=== PATIENT | female | born 2000 | race African-American/Black ===

== ENCOUNTER 2018-12-22 00:04 | Inpatient (IN) ==
[2018-12-22] MEDS ORDERED: OXYTOCIN/LR 20 UNIT/1,000 ML BAG IV PRN (00:22)
[2018-12-22] MEDS: LACTATED RINGERS 1,000 ML IV SCH ×3 (00:44→23:00)
[2018-12-22] MEDS: AMPICILLIN INJ 2,000 MG in SODIUM CHLORIDE 0.9% 100 ML IV SCH ×4 (01:04→20:30)
[2018-12-22 01:15] LABS: Basophils % 0.2 % (0.0-0.8); Eosinophils # 0.1 10*3/uL (0.0-0.87); Eosinophils % 0.5 % (0.00-10.9); Hematocrit 32.4 VOL% (35.7-47.0); Immature Granulocytes % 0.3 %; Immature Granulocytes Absolute 0.03 #; Lymphocytes % 20.4 % (21.3-54.2); Mean Corpuscular HGB Conc 30.9 GM/DL (32-36); Mean Corpuscular Hemoglobin 26 PG (27-34); Mean Corpuscular Volume 84.2 FL (87-102); Mean Platelet Volume 11.5 FL (9.6-12.0); Monocytes # 0.7 10*3/uL (0.11-0.8); Monocytes % 6.9 % (1.7-12.7); Neutrophils % 71.7 % (38.7-73.9); Platelet Count 292 T/CUMM (130-400); Red Blood Count 3.85 MC/CUMM (3.8-5.5); Red Cell Distribution Width 16.9 % (9.3-17.3); White Blood Count 9.8 T/CUMM (4-12)
[2018-12-22 01:18] LABS: Albumin 2.9 G/DL (3.4-5.0); Bilirubin,Total 0.6 MG/DL (0.2-1.0); Calcium 9.3 MG/DL (8.5-10.1); Osmolality,Calculated 273.7 MOS/KG (273-304); Total Protein 7.4 G/DL (6.4-8.3)
[2018-12-22] MEDS: BUTORPHANOL 2 MG/ML VIAL IV PRN ×4 (04:15→22:20)
[2018-12-22] MEDS: ONDANSETRON 4 MG/2 ML VIAL IV PRN ×3 (04:20→18:35)
[2018-12-22] MEDS ORDERED: ZALEPLON 5 MG CAPSULE PO ONE (22:13)
[2018-12-23] MEDS ORDERED: ceFAZolin 1,000 MG VIAL IV SCH
[2018-12-23] MEDS: ONDANSETRON 4 MG/2 ML VIAL IV PRN ×2 (00:51→07:11)
[2018-12-23] MEDS: MEPERIDINE 25 MG/1 ML VIAL IV PRN ×2 (00:53→05:49)
[2018-12-23] MEDS: AMPICILLIN INJ 2,000 MG in SODIUM CHLORIDE 0.9% 100 ML IV SCH ×3 (02:30→15:26)
[2018-12-23] MEDS: BUTORPHANOL 2 MG/ML VIAL IV PRN ×2 (04:22→07:10)
[2018-12-23] MEDS ORDERED: CITRIC ACID/SODIUM CITRATE 30 ML UDCUP PO ONE (07:18)
[2018-12-23] MEDS ORDERED: LACTATED RINGERS 1,000 ML IV ONE (07:18)
[2018-12-23] MEDS ORDERED: ePHEDrine 50 MG/ML AMP IV PRN (07:18)
[2018-12-23] MEDS ORDERED: FAMOTIDINE 20 MG/2 ML VIAL IV ONE (07:18)
[2018-12-23] MEDS ORDERED: diphenhydrAMINE 50 MG/1 ML VIAL IV PRN ×2 (07:19)
[2018-12-23] MEDS ORDERED: PROMETHAZINE 25 MG/1 ML VIAL IM ONE (07:19)
[2018-12-23] MEDS ORDERED: hydrOXYzine HCL 25 MG/1 ML VIAL IM PRN (07:19)
[2018-12-23] MEDS ORDERED: NALOXONE 0.4 MG/ML VIAL IV PRN (07:19)
[2018-12-23] MEDS ORDERED: LACTATED RINGERS 250 ML IV PRN (07:19)
[2018-12-23] MEDS ORDERED: LACTATED RINGERS 1,000 ML IV SCH ×2 (07:30)
[2018-12-23] MEDS: fentaNYL 2 MCG/ROPIV 0.2% EPID 100 ML EPIDURAL SCH ×2 (08:00→16:05)
[2018-12-23 10:17] LABS: Apearance,Urine Slightly Hazy (Clear); Bilirubin,Urine Negative (Negative); Blood, Urine Large mg/dL (Negative); Glucose,Urine (UA) Negative (Negative); Ketones,Urine 80 mg/dL (Negative); Mucus,Urine Occasional /LPF (Occasional); Nitrite,Urine Negative (Negative); Protein,Urine 30 MG/DL; RBC,Urine 419 /HPF (0-4); Squamous Epithelial Cell,Urine Occasional /HPF (0-10); Urine Color Yellow (Yellow); Urine Specific Gravity 1.021 (1.001-1.035); Urine Urobilinogen < 2.0 EU/DL (0.2-1.0); WBC,Urine 6 /HPF (0-6)
[2018-12-23] MEDS ORDERED: ceFAZolin 3,000 MG in SYRINGE 1 EACH IV ONE (16:29)
[2018-12-23] MEDS ORDERED: LIDOCAINE 2% 20 ML VIAL ONE (17:14)
[2018-12-23] MEDS ORDERED: RHO(D) IMMUNE GLOBULIN 300 MCG SYRINGE IM ONE (18:22)
[2018-12-23] MEDS ORDERED: OXYTOCIN/LR 20 UNIT/1,000 ML BAG IV ONE (18:22)
[2018-12-23] MEDS ORDERED: BISACODYL 10 MG SUPP RECTAL PRN (18:22)
[2018-12-23] MEDS ORDERED: WITCH HAZEL PADS 100/JAR TOP PRN (18:22)
[2018-12-23] MEDS ORDERED: BENZOCAINE 20%/MENTHOL 0.5% SPRAY 56 GM CAN TOP PRN (18:22)
[2018-12-23] MEDS ORDERED: DIPH/TET/ACEL PERT BOOSTER VACCINE 0.5 ML VIAL IM ONE (18:22)
[2018-12-23] MEDS ORDERED: HYDROCORTISONE 2.5% RECTAL CREAM 30 GM TUBE TOP PRN (18:22)
[2018-12-23] MEDS ORDERED: ONDANSETRON 4 MG/2 ML VIAL IV PRN (18:22)
[2018-12-23] MEDS ORDERED: LANOLIN 50% CREAM 0.3 OZ TUBE TOP PRN (18:22)
[2018-12-23] MEDS ORDERED: MEASLES/MUMPS/RUBELLA VACCINE 0.5 ML VIAL SUBCUT ONE (18:22)
[2018-12-23] MEDS ORDERED: oxyCODONE/ACETAMINOPHEN 5-325 MG TABLET PO PRN (18:22)
[2018-12-23] MEDS ORDERED: ACETAMINOPHEN 325 MG TABLET PO PRN (18:22)
[2018-12-23] MEDS ORDERED: fentaNYL 100 MCG/2 ML VIAL ONE (18:46)
[2018-12-23] MEDS ORDERED: PROPOFOL 200 MG/20 ML VIAL IV ONE (18:46)
[2018-12-23] MEDS ORDERED: DEXAMETHASONE 4 MG/1 ML VIAL ONE (18:46)
[2018-12-23] MEDS ORDERED: KETAMINE 500 MG/10 ML VIAL ONE (18:46)
[2018-12-23] MEDS ORDERED: ONDANSETRON 4 MG/2 ML VIAL ONE (18:47)
[2018-12-23] MEDS: oxyCODONE/ACETAMINOPHEN 5-325 MG TABLET PO PRN (22:18)
[2018-12-23] MEDS: IBUPROFEN 800 MG TABLET PO PRN (23:15)
[2018-12-24] MEDS: ceFAZolin 1,000 MG VIAL IV SCH ×3 (00:30→16:05)
[2018-12-24] MEDS: DOCUSATE SODIUM 100 MG CAPSULE PO SCH ×3 (00:51→20:35)
[2018-12-24] MEDS: oxyCODONE/ACETAMINOPHEN 5-325 MG TABLET PO PRN ×3 (04:16→23:21)
[2018-12-24 05:27] LABS: Basophils % 0.2 % (0.0-0.8); Hematocrit 22.2 VOL% (35.7-47.0); Immature Granulocytes % 0.7 %; Immature Granulocytes Absolute 0.09 #; Lymphocytes % 7.8 % (21.3-54.2); Mean Corpuscular HGB Conc 31.5 GM/DL (32-36); Mean Corpuscular Hemoglobin 26 PG (27-34); Mean Corpuscular Volume 83.5 FL (87-102); Mean Platelet Volume 11.5 FL (9.6-12.0); Monocytes # 0.7 10*3/uL (0.11-0.8); Monocytes % 5.1 % (1.7-12.7); Neutrophils # 10.9 10*3/uL (1.4-7.4); Neutrophils % 86.2 % (38.7-73.9); Platelet Count 244 T/CUMM (130-400); Red Blood Count 2.66 MC/CUMM (3.8-5.5); White Blood Count 12.6 T/CUMM (4-12)
[2018-12-24] MEDS: IBUPROFEN 800 MG TABLET PO PRN ×2 (08:45→20:37)
[2018-12-24] MEDS: SIMETHICONE CHEW 80 MG TABLET PO PRN (09:12)
[2018-12-24] MEDS: FERROUS SULFATE 325 MG TABLET PO SCH ×3 (09:12→20:35)
[2018-12-24] MEDS: MAGNESIUM HYDROXIDE SUSP 30 ML UDCUP PO PRN (09:12)
[2018-12-25] MEDS: IBUPROFEN 800 MG TABLET PO PRN (04:04)
[2018-12-25] MEDS: oxyCODONE/ACETAMINOPHEN 5-325 MG TABLET PO PRN (05:17)
[2018-12-25 07:39] VITALS: BP 120/64
[2018-12-25] MEDS: MAGNESIUM HYDROXIDE SUSP 30 ML UDCUP PO PRN (09:18)
[2018-12-25] MEDS: SIMETHICONE CHEW 80 MG TABLET PO PRN (09:19)
[2018-12-25] MEDS: FERROUS SULFATE 325 MG TABLET PO SCH (09:19)
[2018-12-25] MEDS: DOCUSATE SODIUM 100 MG CAPSULE PO SCH (09:19)
== END 2018-12-25 11:40 | disposition home or self-care (01) | DRG 540 ==
LOC: N.LDOUT 00:04 → N.LD 00:06 → N.OB 12-23 21:38
PROVIDERS: ADMIT Specialist; ATTEND Specialist
PROC: LDCSECT (ICD-10-PCS; 2018-12-23 17:00)

== ENCOUNTER 2020-12-29 05:35 | Inpatient (IN) ==
[2020-12-29] MEDS ORDERED: FAMOTIDINE 20 MG/2 ML VIAL IV ONE (05:43)
[2020-12-29] MEDS ORDERED: ceFAZolin 3,000 MG in SYRINGE 1 EACH IV ONE (05:43)
[2020-12-29] MEDS ORDERED: CITRIC ACID/SODIUM CITRATE 30 ML UDCUP PO ONE (05:43)
[2020-12-29] MEDS ORDERED: LACTATED RINGERS 1,000 ML IV ONE (05:46)
[2020-12-29] MEDS ORDERED: miSOPROStoL 200 MCG TABLET ONE (05:49)
[2020-12-29] MEDS ORDERED: TRANEXAMIC ACID 1,000 MG/10 ML VIAL ONE (05:50)
[2020-12-29] MEDS ORDERED: CARBOPROST TROMETHAMINE 250 MCG/ML AMP IM ONE (05:50)
[2020-12-29] MEDS ORDERED: METHYLERGONOVINE 0.2 MG/1 ML AMP ONE (05:50)
[2020-12-29] MEDS ORDERED: SODIUM CHLORIDE 0.9% 100 ML IV ONE (05:51)
[2020-12-29] MEDS ORDERED: LACTATED RINGERS 1,000 ML IV SCH (06:00)
[2020-12-29 06:24] LABS: Basophils % 0.1 % (0.0-0.8); Eosinophils # 0.1 10*3/uL (0.0-0.87); Eosinophils % 0.7 % (0.00-10.9); Hematocrit 34.5 VOL% (35.7-47.0); Hemoglobin 10.6 GM/DL (12.0-16.0); Immature Granulocytes % 0.6 %; Immature Granulocytes Absolute 0.05 #; Lymphocytes # 1.8 10*3/uL (1.4-4.0); Lymphocytes % 20.8 % (21.3-54.2); Mean Corpuscular HGB Conc 30.7 GM/DL (32-36); Mean Corpuscular Volume 82.5 FL (87-102); Mean Platelet Volume 11.8 FL (9.6-12.0); Monocytes % 5.8 % (1.7-12.7); Platelet Count 338 T/CUMM (130-400); Red Blood Count 4.18 MC/CUMM (3.8-5.5); Red Cell Distribution Width 18.1 % (9.3-17.3); White Blood Count 8.8 T/CUMM (4-12)
[2020-12-29] MEDS ORDERED: MORPHINE 10 MG/10 ML VIAL ONE (06:57)
[2020-12-29] MEDS ORDERED: BUPIVACAINE SPINAL 0.75% 2 ML AMP SPINAL ONE (07:00)
[2020-12-29] MEDS ORDERED: ONDANSETRON 4 MG/2 ML VIAL ONE ×2 (07:00)
[2020-12-29] MEDS ORDERED: OXYTOCIN/LR 20 UNIT/1,000 ML BAG IV ONE ×3 (07:35→08:28)
[2020-12-29] MEDS ORDERED: MIDAZOLAM 2 MG/2 ML VIAL ONE (07:38)
[2020-12-29] MEDS ORDERED: propofoL 200 MG/20 ML VIAL IV ONE (07:45)
[2020-12-29 08:05] LABS: Cord Venous Blood HCO3 22.3 MMOL/L; Cord Venous Blood PCO2 37.9 MMHG; Cord Venous Blood PO2 42.4 MMHG
[2020-12-29 08:11] LABS: Cord Arterial Blood HCO3 24.7 MMOL/L
[2020-12-29 08:12] LABS: Bacteria,Urine Occasional /HPF (Few); Bilirubin,Urine Negative (Negative); Blood, Urine Negative (Negative); Glucose,Urine (UA) Negative (Negative); Ketones,Urine Negative (Negative); Mucus,Urine Occasional /LPF (Occasional); Nitrite,Urine Negative (Negative); Protein,Urine 30 MG/DL; RBC,Urine 2 /HPF (0-4); Squamous Epithelial Cell,Urine Occasional /HPF (0-10); Urine Appearance CLEAR (Clear); Urine Color Yellow (Yellow); Urine Specific Gravity 1.023 (1.001-1.035); Urine Urobilinogen < 2.0 EU/DL (0.2-1.0); WBC,Urine 1 /HPF (0-6)
[2020-12-29] MEDS ORDERED: diphenhydrAMINE 50 MG/1 ML VIAL ONE (08:22)
[2020-12-29] MEDS ORDERED: BISACODYL 10 MG SUPP RECTAL PRN (08:28)
[2020-12-29] MEDS ORDERED: WITCH HAZEL PADS 100/JAR TOP PRN (08:28)
[2020-12-29] MEDS ORDERED: IBUPROFEN 800 MG TABLET PO PRN (08:28)
[2020-12-29] MEDS ORDERED: LANOLIN 50% CREAM 0.3 OZ TUBE TOP PRN (08:28)
[2020-12-29] MEDS ORDERED: ACETAMINOPHEN 325 MG TABLET PO PRN (08:28)
[2020-12-29] MEDS ORDERED: RHO(D) IMMUNE GLOBULIN 300 MCG SYRINGE IM ONE (08:28)
[2020-12-29] MEDS ORDERED: BENZOCAINE 20%/MENTHOL 0.5% SPRAY 56 GM CAN TOP PRN (08:28)
[2020-12-29] MEDS ORDERED: oxyCODONE/ACETAMINOPHEN 5-325 MG TABLET PO PRN (08:28)
[2020-12-29] MEDS ORDERED: ONDANSETRON 4 MG/2 ML VIAL IV PRN (08:28)
[2020-12-29] MEDS ORDERED: HYDROCORTISONE 2.5% RECTAL CREAM 30 GM TUBE TOP PRN (08:28)
[2020-12-29] MEDS ORDERED: DIPH/TET/ACEL PERT BOOSTER VACCINE 0.5 ML VIAL IM ONE (08:28)
[2020-12-29] MEDS ORDERED: MEASLES/MUMPS/RUBELLA VACCINE 0.5 ML VIAL SUBCUT ONE (08:28)
[2020-12-29] MEDS: ACETAMINOPHEN 500 MG TABLET PO SCH ×3 (09:50→21:58)
[2020-12-29] MEDS: KETOROLAC 30 MG/1 ML VIAL IV SCH ×3 (09:51→21:58)
[2020-12-29] MEDS ORDERED: MAGNESIUM HYDROXIDE SUSP 30 ML UDCUP PO PRN (12:37)
[2020-12-29] MEDS: ceFAZolin 2,000 MG in PREMIX 1 EACH IV SCH ×2 (14:41→23:57)
[2020-12-30] MEDS: DOCUSATE SODIUM 100 MG CAPSULE PO SCH ×3 (00:36→21:02)
[2020-12-30] MEDS: ACETAMINOPHEN 500 MG TABLET PO SCH (04:07)
[2020-12-30] MEDS: KETOROLAC 30 MG/1 ML VIAL IV SCH (04:07)
[2020-12-30 06:01] LABS: Basophils % 0.2 % (0.0-0.8); Eosinophils # 0.1 10*3/uL (0.0-0.87); Eosinophils % 0.6 % (0.00-10.9); Hematocrit 25.9 VOL% (35.7-47.0); Hemoglobin 8.1 GM/DL (12.0-16.0); Immature Granulocytes % 0.2 %; Immature Granulocytes Absolute 0.02 #; Lymphocytes # 1.2 10*3/uL (1.4-4.0); Lymphocytes % 15.2 % (21.3-54.2); Mean Corpuscular HGB Conc 31.3 GM/DL (32-36); Mean Platelet Volume 11.2 FL (9.6-12.0); Monocytes % 7.2 % (1.7-12.7); Neutrophils % 76.6 % (38.7-73.9); Platelet Count 254 T/CUMM (130-400); Red Blood Count 3.16 MC/CUMM (3.8-5.5); Red Cell Distribution Width 17.7 % (9.3-17.3); White Blood Count 8.1 T/CUMM (4-12)
[2020-12-30] MEDS: IRON (CARBONYL)/VIT C/B12/FA TABLET PO SCH (08:47)
[2020-12-30] MEDS: oxyCODONE/ACETAMINOPHEN 5-325 MG TABLET PO PRN ×3 (09:45→23:07)
[2020-12-30] MEDS ORDERED: SIMETHICONE CHEW 80 MG TABLET PO PRN (17:39)
[2020-12-31] MEDS: oxyCODONE/ACETAMINOPHEN 5-325 MG TABLET PO PRN ×2 (05:23→11:08)
[2020-12-31] MEDS: DOCUSATE SODIUM 100 MG CAPSULE PO SCH (09:42)
[2020-12-31] MEDS: IRON (CARBONYL)/VIT C/B12/FA TABLET PO SCH (09:43)
[2020-12-31] MEDS ORDERED: DIPH/TET/ACEL PERT BOOSTER VACCINE 0.5 ML VIAL IM ONE (11:55)
[2020-12-31 13:29] VITALS: BP 101/51
== END 2020-12-31 12:40 | disposition home or self-care (01) | DRG 540 ==
LOC: N.LD 05:35 → N.OB 10:58
PROVIDERS: ADMIT Specialist; ATTEND Specialist
PROC: LDCSECT (ICD-10-PCS; 2020-12-29 07:45)